=== PATIENT | female | born 1990 | race Caucasian/White ===

== ENCOUNTER 2017-01-25 15:11 | Emergency (ER) | payer MEDICAID ==
[2015-12-13 05:34] VITALS: BMI 29.4
[~2017-01-25 15:11] MED LIST: IBUPROFEN600 MG PO; PERCOCET 5-3251 TAB PO; PRENATAL COMPLE1 TAB PO
[2017-01-25 15:44] LABS: BASOPHILS 0.7 % (0.0-2.0); EOSINOPHILS 2.7 % (0-7); HCG URINE POSITIVE (NEGATIVE); HEMOGLOBIN 13.4 g/dL (12-16); IMMATURE GRANULOCYTES 0.1 % (0-5); LYMPHOCYTES 35.1 % (15-50); MCHC 33.5 g/dL (31.0-37.0); MCV 89.5 fL (80.0-100.0); MEAN PLATELET VOLUME 10.3 fL (7.4-10.4); MONOCYTES 10.1 % (2-11); NEUTROPHILS 51.3 % (40-80); PLATELET COUNT 206 10x3/uL (130-400); RBC 4.47 10x6/uL (4.00-5.40); RDW 12.5 % (11.5-14.5)
[2017-01-25 16:01] LABS: ALBUMIN 3.6 g/dL (3.4-5.0); ALKALINE PHOSPHATASE 41 U/L (46-116); ALT (SGPT) 15 U/L (10-68); BILIRUBIN - TOTAL 0.24 mg/dL (0.2-1.3); CALC OSMOLALITY 277 mosm/kg (275-300); CALCIUM 8.7 mg/dL (8.5-10.1); CHLORIDE - SERUM 105 mmol/L (98-107); CREATININE - SERUM 0.8 mg/dL (0.6-1.3); GLUCOSE 91 mg/dL (74-106); POTASSIUM - SERUM 3.9 mmol/L (3.5-5.1); PROTEIN - SERUM 6.9 g/dL (6.4-8.2); SODIUM 140 mmol/L (136-145); UREA NITROGEN 10 mg/dL (7-18); eGFR NON AFRICAN AMERICAN > 90 mL/min (90-120)
[2017-01-25 16:05] LABS: TROPONIN-I < 0.017 ng/mL (0.000-0.060)
== END 2017-01-25 18:55 | disposition home or self-care (01) ==
LOC: D.ER 15:11
PROVIDERS: Emergency Medicine
DX: O26.899 Other specified pregnancy related conditions, unspecified trimester (principal); F41.9 Anxiety disorder, unspecified; F32.9 Major depressive disorder, single episode, unspecified

== ENCOUNTER 2017-02-08 14:40 | Emergency (ER) | payer MEDICAID ==
[2015-12-13 05:34] VITALS: BMI 29.4
[2017-02-08 15:26] LABS: BASOPHILS 0.2 % (0-2); EOSINOPHILS 0.5 % (0-7); HEMOGLOBIN 13.1 g/dL (12-16); IMMATURE GRANULOCYTES 0.2 % (0-5); LYMPHOCYTES 16.1 % (15-50); MCH 30.6 pg (26.0-34.0); MCHC 33.6 g/dL (31.0-37.0); MCV 91.1 fL (80.0-100.0); MEAN PLATELET VOLUME 10.4 fL (7.4-10.4); MONOCYTES 6.8 % (2-11); NEUTROPHILS 76.2 % (40-80); RBC 4.28 10x6/uL (4.00-5.40); RDW 13.1 % (11.5-14.5)
[2017-02-08 15:36] LABS: PLATELET COUNT 265 10x3/uL (130-400)
== END 2017-02-08 19:25 | disposition left against medical advice (07) ==
LOC: D.ER 14:40
PROVIDERS: Emergency Medicine
DX: O20.9 Hemorrhage in early pregnancy, unspecified (principal)

== ENCOUNTER → 2017-06-16 17:45 | Outpatient (CLI) | payer MEDICAID ==
[2015-12-13 05:34] VITALS: BMI 29.4
[2017-06-16 19:33] LABS: APPEARANCE CLEAR (CLEAR); BILIRUBIN NEGATIVE (NEGATIVE); COLOR STRAW (YELLOW); GLUCOSE NEGATIVE (NEGATIVE); KETONE NEGATIVE (NEGATIVE); LEUKOCYTE ESTERASE NEGATIVE (NEGATIVE); NITRITE NEGATIVE (NEGATIVE); PROTEIN NEGATIVE (NEGATIVE); UROBILINOGEN NORMAL (NORMAL)
== END | disposition home or self-care (01) ==
LOC: D.LDO 17:45
PROVIDERS: Obstetrics & Gynecology
DX: O09.893 Supervision of other high risk pregnancies, third trimester (principal); Z3A.28 28 weeks gestation of pregnancy

== ENCOUNTER 2017-07-17 21:40 | Outpatient (CLI) | payer MEDICAID ==
[2015-12-13 05:34] VITALS: BMI 29.4
[2017-07-17 22:44] LABS: APPEARANCE HAZY (CLEAR); BILIRUBIN NEGATIVE (NEGATIVE); COLOR YELLOW (YELLOW); GLUCOSE NEGATIVE (NEGATIVE); KETONE NEGATIVE (NEGATIVE); NITRITE NEGATIVE (NEGATIVE); PROTEIN TRACE mg/dL (NEGATIVE); UROBILINOGEN NORMAL (NORMAL)
[2017-07-17 22:46] LABS: BACTERIA MODERATE /hpf (NONE SEEN); RED CELLS - URINE 0-5 /hpf (0-5)
[2017-07-17 22:47] LABS: WHITE CELLS - URINE 0-5 /hpf (0-5)
== END 2017-07-17 23:23 | disposition home or self-care (01) ==
LOC: D.LDO 21:40
PROVIDERS: Obstetrics & Gynecology
DX: O26.893 Other specified pregnancy related conditions, third trimester (principal); Z3A.33 33 weeks gestation of pregnancy

== ENCOUNTER → 2017-08-13 05:41 | Outpatient (CLI) | payer MEDICAID ==
[2015-12-13 05:34] VITALS: BMI 29.4
== END | disposition home or self-care (01) ==
LOC: D.LDO 05:41
DX: O26.893 Other specified pregnancy related conditions, third trimester (principal); Z3A.37 37 weeks gestation of pregnancy

== ENCOUNTER 2021-01-22 06:31 | Outpatient (CLI) | payer MEDICAID ==
[2015-12-13 05:34] VITALS: BMI 29.4
== END 2021-01-22 10:40 | disposition other institution (70) ==
LOC: D.LDO 06:31
PROVIDERS: ATTEND Student in an Organized Health Care Education/Training Program
DX: O26.892 Other specified pregnancy related conditions, second trimester (principal); Z3A.23 23 weeks gestation of pregnancy